=== PATIENT | female | born 1945 ===

== ENCOUNTER → 2017-11-19 | Outpatient (CLI) | payer MEDICARE ==
[~2017-11-19] MED LIST: CORED RIGHT EAR; LISI-353 PO
--- NOTE | 2017-11-19 13:10 | RADIOLOGY IMAGING REPORT ---
[place] [facility] [place] Boris Herndon : 1945 MR: [id number] V: [id number] EXAM DATE: ORDERING PHYSICIAN: JENAE HERNDON TECHNOLOGIST: Location: [facility] [place] Patient: Boris Herndon : 1945 Visit/Account:[id number] Date of Sevice: 11/19/2017 EXAMINATION: CT Temporal Bone without IV contrast HISTORY: Right ear granulation tissue and bleeding. TECHNIQUE: Non-IV enhanced high-resolution sub-millimeter axial scans were obtained through both tem poral bones, reformatted in the coronal and sagittal plane. Exam is optimized for bone detail and is not intended for soft tissue evaluation of the posterior fossa. The rest of the brain was not imaged. One of the following dose optimization techniques was utilized in the performance of this exam: Autom ated exposure control; adjustment of the mA and/or kV according to the patient's size; or use of an i terative reconstruction technique. Specific details can be referenced in the facility's radiology C T exam operational policy. COMPARISON: None available. FINDINGS: RIGHT TEMPORAL BONE: Mastoid segment / EAC: Completely opacified hypoplastic right mastoid air cells, mastoid antrum, and aditus at antrum. Blunting of the scutum. Tympanic Membrane / Middle ear: Completely opacified tympanic cavity. Blunting of the scutum. Bone surrounding the incudostapedial joint is not well seen and may be eroded. Mild multifocal thinning o r dehiscence of the tegmen tympani with no large defects. Inner ear: Cochlea / vestibule / semicircular canals: Negative. IAC: Negative. Vestibular / cochlear aqueducts: Negative. Petrous apex: Negative. ICA / jugular bulb: Negative. Visualized skull base: Negative. LEFT TEMPORAL BONE: Mastoid segment / EAC: Negative. Tympanic Membrane / Middle ear: Negative. Inner ear: Cochlea / vestibule / semicircular canals: Negative. IAC: Negative. Vestibular / cochlear aqueducts: Negative. Petrous apex: Negative. ICA / jugular bulb: Negative. Visualized skull base: Negative. Visualized brain/soft tissues/paranasal sinuses: Moderate mucosal thickening in the paranasal sinuses . IMPRESSION: Completely opacified right tympanic and mastoid cavities with blunting of the scutum and possible ero margo of the bone surrounding the incudostapedial joint. Findings are suspicious for cholesteatoma or other tumor. Temporal bone MRI without and with IV contrast may provide additional information. Report Dictated By: Chintan Mcarthur MD at 11/19/2017 12:58 PM Report E-Signed By: Chintan Mcarthur MD at 11/19/2017 1:07 PM WSN:[id number]
== END ==
LOC: CT 01:14
PROVIDERS: ATTEND Otolaryngology
DX: H93.8X1 Other specified disorders of right ear (principal)
CPT/HCPCS: 70480

== ENCOUNTER → 2017-12-06 | Outpatient (CLI) | payer MEDICARE ==
--- NOTE | 2017-12-24 15:08 | RADIOLOGY IMAGING REPORT ---
FACILITY: [facility] PATIENT NAME: YULY FLORES : [id number] MR: [id number] V: [id number] EXAM DATE: ORDERING PHYSICIAN: JOSE ARMANDO ARTIS TECHNOLOGIST: Bonnie Vega PROCEDURE:BILATERAL DIGITAL SCREENING MAMMOGRAM WITH CAD ASSISTED INTERPRETATION & 3D TOMOSYNTHESIS COMPARISON:None. (Multiple attempts were made to obtain the patient's prior mammograms however these attempts were unsuccessful.) INDICATIONS:SCREENING FINDINGS: A small amount of fibroglandular tissue is seen throughout the breasts. There is no demonstration of malignant appearing mass, malignant appearing calcifications or other secondary sign of malignancy in either breast. There's a small fatty replaced intramammary lymph node in the upper outer quadrant of the Right breast. DIAGNOSTIC CATEGORY 2--BENIGN FINDING. RECOMMENDATIONS: ROUTINE MAMMOGRAM AND CLINICAL EVALUATION. IMPRESSION: BIRADS 2: Benign finding. No significant abnormality is seen. Dictated by: Nay Booth M.D. on 12/24/2017 at 10:51 Transcribed by: MICHAEL on 12/24/2017 at 10:59 Approved by: Nay Booth M.D. on 12/24/2017 at 15:07 [facility]
== END ==
LOC: MAMO 09:37
PROVIDERS: ATTEND Physician Assistant
DX: Z12.31 Encounter for screening mammogram for malignant neoplasm of breast (principal)
CPT/HCPCS: 77063; 77067

== ENCOUNTER → 2018-01-01 | Outpatient (CLI) | payer MEDICARE | LOC: AUD 13:17 | PROVIDERS: ATTEND Otolaryngology | DX: H91.92 Unspecified hearing loss, left ear (principal) | CPT/HCPCS: 92553; 92567 ==

== ENCOUNTER → 2018-07-09 | Outpatient (CLI) | payer MEDICARE ==
--- NOTE | 2018-07-09 13:01 | RADIOLOGY IMAGING REPORT ---
FACILITY: [facility] - [place] PATIENT NAME: Boris Herndon : 1945 MR: [id number] V: [id number] EXAM DATE: ORDERING PHYSICIAN: JOSE ARMANDO ARTIS TECHNOLOGIST: Location: [facility] Patient: Boris Herndon : 1945 Visit/Account:[id number] Date of Sevice: 07/09/2018 DEXA Scan HISTORY: Osteoporosis screening. COMPARISON: None. LUMBAR SPINE: The bone mineral density (BMD) measured from L1-L4 correlates with a Z-score 0.6 and a T-score of -1 .7 which is osteopenia as defined by the World Health Organization. The corresponding risk of fractu re in the lumbar spine is increased compared with a young adult reference population. HIP: Bone mineral density (BMD) measured in the Left total hip region correlates with a Z-score -0.1 and a T-score of -2.1 which is osteopenia as defined by the World Health Organization. The corresponding risk of fracture in the hip is increased compared with a young adult reference population. Bone mineral density (BMD) measured in the Femoral Neck region measures 0.683 g/cm2, is in the osteop orosis range. IMPRESSION: 1. Lumbar spine: Osteopenia. 2. Left Total Hip: Osteopenia. 3. Left femoral neck: Bone Mineral Density is 0.683 g/cm2 which is in the osteoporosis range. The next DEXA scan of this patient should include the following sites: L1-L4 and the left hip. FRAX? WHO Fracture Risk Assessment Tool link: <http://www.shef.ac.uk/FRAX/tool.jsp?locationValue=9> PLEASE NOTE: 1) The World Health Organization defines low BMD as follows: T-score Normal > -1 Osteopenia < -1 and > -2.5 Osteoporosis < -2.5 without fractures Established osteoporosis < -2.5 with fractures 2) In general, you may wish to consider: Diagnosis Treatment Follow-up DEXA Normal BMD Prevention 2-3 years Osteopenia Prevention/therapy 1-2 years Osteoporosis Therapy Yearly 3) Fracture risk estimated from the T-score is more accurate for vertebral fractures (often spontane ous) than for hip fractures. Report Dictated By: Valentín Acosta MD at 07/09/2018 12:55 PM Report E-Signed By: Valentín Acosta MD at 07/09/2018 12:57 PM WSN:[id number]
== END ==
LOC: RAD 12:10
PROVIDERS: ATTEND Physician Assistant
DX: Z13.820 Encounter for screening for osteoporosis (principal); M85.80 Other specified disorders of bone density and structure, unspecified site
CPT/HCPCS: 77080

== ENCOUNTER → 2019-01-09 | Outpatient (CLI) | payer MEDICARE ==
--- NOTE | 2019-01-09 15:46 | RADIOLOGY IMAGING REPORT ---
FACILITY: [facility] PATIENT NAME: YULY FLORES : [id number] MR: [id number] V: [id number] EXAM DATE: [id number] ORDERING PHYSICIAN: JOSE ARMANDO ARTIS TECHNOLOGIST: Bonnie Vega PROCEDURE: BILATERAL DIGITAL SCREENING MAMMOGRAM WITH CAD ASSISTED INTERPRETATION & 3D TOMOSYNTHESIS. REASON FOR STUDY: Screening. FAMILY HISTORY OF BREAST CANCER: None. BREAST PROCEDURES/TREATMENTS: None. COMPARISON: 12/06/17. VIEWS OBTAINED: Bilateral 2D & 3D full field CC & MLO projections. BREAST DENSITY: There are scattered areas of fibroglandular density throughout the breasts. MAMMOGRAM FINDINGS: The parenchymal pattern has remained stable allowing for difference in mammographic technique & patient positioning. IMPRESSION: BIRADS 1: Negative. DIAGNOSTIC CATEGORY 1--NEGATIVE. RECOMMENDATIONS: ROUTINE MAMMOGRAM AND CLINICAL EVALUATION. Dictated by: Nay Booth M.D. on 01/09/2019 at 15:06 Transcribed by: MICHAEL on 01/09/2019 at 15:14 Approved by: Nay Booth M.D. on 01/09/2019 at 15:42 [facility]
== END ==
LOC: MAMO 00:39
PROVIDERS: ATTEND Physician Assistant
DX: Z12.31 Encounter for screening mammogram for malignant neoplasm of breast (principal)
CPT/HCPCS: 77063; 77067